=== PATIENT | female | born 1950 | race Caucasian/White ===

== ENCOUNTER → 2024-04-07 | Outpatient (CLI) | payer MEDICARE, SELFPAY ==
[2024-04-07 08:58] LABS: Basophils % (Auto) 1 % (0-2.5); Eosinophils # (Auto) 0.1 Thou/mm3 (0.0-0.5); Eosinophils % (Auto) 4 % (0-10); Hematocrit 38.5 % (36.0-46.0); Hemoglobin 13.2 g/dL (12.0-16.0); Immature Granulocytes % (Auto) 0 % (0-0); Immature Granulocytes Auto 0.01 Thou/mm3 (0.00-0.00); Lymphocytes # (Auto) 1.2 Thou/mm3 (1.0-4.8); Lymphocytes % (Auto) 32 % (10-50); Mean Corpuscular HGB Conc 34.3 g/dl (31.0-37.0); Mean Corpuscular Hemoglobin 33.9 pg (25.0-35.0); Mean Corpuscular Volume 99 fL (80-100); Monocytes # (Auto) 0.2 Thou/mm3 (0.0-0.8); Monocytes % (Auto) 5 % (0-12); Neutrophils # (Auto) 2.1 Thou/mm3 (1.8-7.7); Neutrophils % (Auto) 58 % (37-80); Nucleated Red Blood Cell % 0 /100 WBC (0); Platelet Count 219 Thou/mm3 (140-440); RDW Standard Deviation 49.4 fL (36.4-46.3); Red Blood Count 3.89 Miln/mm3 (4.00-5.20); White Blood Count 3.7 Thou/mm3 (3.6-11.0)
[2024-04-07 09:15] LABS: Sed Rate (ESR) 1 mm/hr (0-30)
[2024-04-07 09:38] LABS: Alanine Aminotransferase 17 U/L (10-49); Albumin, Serum 4.1 gm/dL (3.4-4.8); Albumin/Globulin Ratio 1.7 (1.2-2.2); Alkaline Phosphatase 39 U/L (46-116); Anion Gap 7 (7-16); Aspartate Amino Transferase 24 U/L (0-34); BUN/Creatinine Ratio 18 Ratio (12-20); Bilirubin,Total 0.7 mg/dL (0.3-1.2); Blood Urea Nitrogen 22 mg/dL (9-23); Calcium 9.8 mg/dL (8.3-10.6); Calcium (Corrected) 9.8 mg/dL (8.5-10.1); Carbon Dioxide 30.4 mMol/L (20.0-31.0); Chloride 105 mMol/L (98-107); Creatinine (Component) 1.2 mg/dL (0.6-1.3); Globulin 2.4 gm/dL (2.3-3.5); Glucose 94 mg/dL (74-106); Osmolality,Calculated 286 (275-295); Potassium 4.7 mMol/L (3.4-5.1); Sodium 142 mMol/L (136-145); Total Protein 6.5 gm/dL (5.7-8.2); eGFR 48 See Note
== END | disposition home or self-care (01) ==
LOC: COPL 07:29
PROVIDERS: PCP Family Medicine; Referring Provider Nurse Practitioner Family; Visit Provider Nurse Practitioner Family
DX: Z01.89 Encounter for other specified special examinations (principal); Z79.60 Long term (current) use of unspecified immunomodulators and immunosuppressants
CPT/HCPCS: 36415; 80053; 85025; 85652

== ENCOUNTER → 2024-07-28 | Outpatient (CLI) | payer MEDICARE, SELFPAY ==
[2024-07-28 09:20] LABS: Basophils % (Auto) 0 % (0-2.5); Eosinophils # (Auto) 0.1 Thou/mm3 (0.0-0.5); Eosinophils % (Auto) 3 % (0-10); Hematocrit 37.5 % (36.0-46.0); Hemoglobin 13.4 g/dL (12.0-16.0); Immature Granulocytes % (Auto) 0 % (0-0); Immature Granulocytes Auto 0.01 Thou/mm3 (0.00-0.00); Lymphocytes # (Auto) 1.2 Thou/mm3 (1.0-4.8); Lymphocytes % (Auto) 26 % (10-50); Mean Corpuscular HGB Conc 35.7 g/dl (31.0-37.0); Mean Corpuscular Hemoglobin 34.9 pg (25.0-35.0); Mean Corpuscular Volume 98 fL (80-100); Monocytes # (Auto) 0.2 Thou/mm3 (0.0-0.8); Monocytes % (Auto) 5 % (0-12); Neutrophils # (Auto) 2.9 Thou/mm3 (1.8-7.7); Neutrophils % (Auto) 65 % (37-80); Nucleated Red Blood Cell % 0 /100 WBC (0); Platelet Count 226 Thou/mm3 (140-440); RDW Standard Deviation 48.3 fL (36.4-46.3); Red Blood Count 3.84 Miln/mm3 (4.00-5.20); White Blood Count 4.5 Thou/mm3 (3.6-11.0)
[2024-07-28 09:48] LABS: Alanine Aminotransferase 17 U/L (10-49); Albumin, Serum 4.1 gm/dL (3.4-4.8); Albumin/Globulin Ratio 1.6 (1.2-2.2); Alkaline Phosphatase 41 U/L (46-116); Anion Gap 8 (7-16); Aspartate Amino Transferase 27 U/L (0-34); BUN/Creatinine Ratio 18 Ratio (12-20); Bilirubin,Total 0.8 mg/dL (0.3-1.2); Blood Urea Nitrogen 22 mg/dL (9-23); Calcium 8.7 mg/dL (8.3-10.6); Calcium (Corrected) 8.7 mg/dL (8.5-10.1); Chloride 108 mMol/L (98-107); Creatinine (Component) 1.2 mg/dL (0.6-1.3); Globulin 2.5 gm/dL (2.3-3.5); Glucose 94 mg/dL (74-106); Osmolality,Calculated 286 (275-295); Potassium 4.3 mMol/L (3.4-5.1); Sodium 142 mMol/L (136-145); Total Protein 6.6 gm/dL (5.7-8.2); eGFR 48 See Note
[2024-07-28 09:57] LABS: Sed Rate (ESR) 1 mm/hr (0-30)
== END | disposition home or self-care (01) ==
LOC: COPL 07:27
PROVIDERS: PCP Family Medicine; Referring Provider Nurse Practitioner Family; Visit Provider Nurse Practitioner Family
DX: M05.79 Rheumatoid arthritis with rheumatoid factor of multiple sites without organ or systems involvement (principal)
CPT/HCPCS: 36415; 80053; 85025; 85652

== ENCOUNTER → 2024-08-06 | Outpatient (CLI) | payer MEDICARE, SELFPAY ==
[2024-08-06 08:14] LABS: Collection Type, Urine Clean Catch
[2024-08-06 08:40] LABS: Bilirubin,Urine Negative (Negative); Blood,Urine Negative (Negative); Clarity,Urine Clear (Clear/Hazy); Color,Urine Lt-Yellow (Lt Yel-Yel); Glucose, Urine Negative (Negative); Ketones,Urine Negative (Negative); Leukocyte Esterase,Urine Negative (Negative); Nitrite,Urine Negative (Negative); Protein,Urine Negative (Neg - Trace); RBC,Urine 3 /hpf (0-3); Specific Gravity,Urine 1.018 (1.001-1.035); Squamous Epithelial Cell,Urine 1 /hpf (0-5); Urobilinogen,Urine Negative mg/dL (0.0-1.0); WBC,Urine 3 /hpf (0-5)
[2024-08-06 08:51] LABS: Basophils % (Auto) 1 % (0-2.5); Eosinophils # (Auto) 0.2 Thou/mm3 (0.0-0.5); Eosinophils % (Auto) 4 % (0-10); Hemoglobin 13.3 g/dL (12.0-16.0); Immature Granulocytes % (Auto) 0 % (0-0); Immature Granulocytes Auto 0.01 Thou/mm3 (0.00-0.00); Lymphocytes # (Auto) 1.2 Thou/mm3 (1.0-4.8); Lymphocytes % (Auto) 22 % (10-50); Mean Corpuscular Hemoglobin 35.5 pg (25.0-35.0); Mean Corpuscular Volume 101 fL (80-100); Monocytes # (Auto) 0.4 Thou/mm3 (0.0-0.8); Monocytes % (Auto) 7 % (0-12); Neutrophils # (Auto) 3.5 Thou/mm3 (1.8-7.7); Neutrophils % (Auto) 66 % (37-80); Nucleated Red Blood Cell % 0 /100 WBC (0); Platelet Count 234 Thou/mm3 (140-440); RDW Standard Deviation 49.5 fL (36.4-46.3); Red Blood Count 3.75 Miln/mm3 (4.00-5.20); White Blood Count 5.2 Thou/mm3 (3.6-11.0)
[2024-08-06 08:57] LABS: Alanine Aminotransferase 19 U/L (10-49); Albumin, Serum 4.2 gm/dL (3.4-4.8); Albumin/Globulin Ratio 1.6 (1.2-2.2); Alkaline Phosphatase 39 U/L (46-116); Anion Gap 8 (7-16); Aspartate Amino Transferase 25 U/L (0-34); BUN/Creatinine Ratio 15 Ratio (12-20); Bilirubin,Total 0.9 mg/dL (0.3-1.2); Blood Urea Nitrogen 18 mg/dL (9-23); Calcium 9.1 mg/dL (8.3-10.6); Calcium (Corrected) 9.1 mg/dL (8.5-10.1); Carbon Dioxide 27.8 mMol/L (20.0-31.0); Chloride 107 mMol/L (98-107); Creatinine (Component) 1.2 mg/dL (0.6-1.3); Globulin 2.6 gm/dL (2.3-3.5); Glucose 97 mg/dL (74-106); Osmolality,Calculated 286 (275-295); Potassium 4.4 mMol/L (3.4-5.1); Sodium 143 mMol/L (136-145); Thyroid Stimulating Hormone 1.87 uIU/mL (0.55-4.78); Total Protein 6.8 gm/dL (5.7-8.2); eGFR 48 See Note
== END | disposition home or self-care (01) ==
LOC: COPL 07:41
PROVIDERS: PCP Family Medicine; Referring Provider Family Medicine; Visit Provider Family Medicine
DX: I10 Essential (primary) hypertension (principal)
CPT/HCPCS: 36415; 80053; 81001; 84443; 85025

== ENCOUNTER → 2024-10-01 | Outpatient (CLI) | payer MEDICARE, SELFPAY ==
--- NOTE | 2024-10-01 09:15 | XR_ITS ---
Examination: Carotid arterial duplex scan, ultrasound. Date and time of exam: October 01, 2024 0949 hours INDICATIONS: Dizziness episodes beginning 4 months ago Technique: Multiple sonographic images have been obtained of the carotid arteries and vertebral arteries, B-mode/grayscale imaging and Doppler spectral analysis and color flow Peak systolic and diastolic velocities have been recorded. Systolic diastolic ratios have been calculated. Findings: Right peak systolic velocities: Distal internal carotid artery peak systolic velocity is 0.7 M/sec Proximal internal carotid artery peak systolic velocity is 0.6 M/sec Carotid bifurcation peak systolic velocity is 0.6 M/sec External carotid artery peak systolic velocity is 0.6 M/sec Vertebral artery flow is antegrade. Left peak systolic velocities: Distal internal carotid artery peak systolic velocity is 0.6 M/sec Proximal internal carotid artery peak systolic velocity is 0.3 M/sec Carotid bifurcation peak systolic velocity is 0.5 M/sec External carotid artery peak systolic velocity is 0.4 M/sec Vertebral artery flow is antegrade Doppler waveform analysis demonstrates no spectral broadening Impression: Right internal carotid artery demonstrates 0-10% stenosis. Left internal carotid artery demonstrates 0-10% stenosis.
[2024-10-01 10:49] LABS: Vitamin B12 473 pg/mL (211-911)
== END | disposition home or self-care (01) ==
LOC: CDIM 08:58 → COPL 10:11
PROVIDERS: PCP Family Medicine; Referring Provider Psychiatry & Neurology Neurology; Visit Provider Radiology Diagnostic Radiology
DX: I65.23 Occlusion and stenosis of bilateral carotid arteries (principal); R42 Dizziness and giddiness
CPT/HCPCS: 36415; 82607; 93880

== ENCOUNTER → 2025-03-08 | Outpatient (CLI) | payer MEDICARE, SELFPAY ==
--- NOTE | 2025-03-08 10:05 | XR_ITS ---
EXAMINATION: Right knee 2 views TECHNIQUE: Standing AP lateral right knee 2 views Date and time: March 08, 2025, 10:43 a.m. INDICATIONS: Knee pain 1 month. FINDINGS: Severe narrowing medial joint space Moderate osteopenia Moderate osteoarthritis patellofemoral joint Small knee effusion IMPRESSION: Severe narrowing medial joint space
--- NOTE | 2025-03-08 10:05 | XR_ITS ---
EXAMINATION: Bilateral knees single view TECHNIQUE: Standing AP bilateral knees single view Date and time: March 08, 2025, 1042 hours INDICATION: Right knee pain beginning 1 month ago. FINDINGS: Advanced narrowing medial joint spaces bilaterally Prominent osteopenia No fractures IMPRESSION: Advanced narrowing medial joint spaces bilaterally
== END | disposition home or self-care (01) ==
PROVIDERS: PCP Family Medicine; Referring Provider Orthopaedic Surgery; Visit Provider Orthopaedic Surgery
DX: M25.861 Other specified joint disorders, right knee (principal); M25.862 Other specified joint disorders, left knee
CPT/HCPCS: 73560; 73565